=== PATIENT | male | born 1945 | race Caucasian/White ===

== ENCOUNTER → 2017-09-20 | Outpatient (CLI) | payer MEDICARE | END | disposition home or self-care (01) | LOC: OIH 13:21 | PROVIDERS: ATTEND Internal Medicine | DX: R05 Cough (principal); Z95.0 Presence of cardiac pacemaker | CPT/HCPCS: 71046 ==

== ENCOUNTER → 2017-10-17 | Outpatient (CLI) | payer MEDICARE | END | disposition home or self-care (01) | LOC: RAH 12:49 | PROVIDERS: ATTEND Internal Medicine | DX: J44.9 Chronic obstructive pulmonary disease, unspecified (principal); R04.2 Hemoptysis | CPT/HCPCS: 71250 ==

== ENCOUNTER 2018-06-07 14:56 | Emergency (ER) | payer MEDICARE ==
[2018-06-07] MEDS ORDERED: LIDOCAINE HCL MPF 1% 5ML VIAL ONE (15:28)
== END 2018-06-07 16:34 | disposition home or self-care (01) ==
LOC: EDH 14:56
DX: S61.210A Laceration without foreign body of right index finger without damage to nail, initial encounter (principal); I25.10 Atherosclerotic heart disease of native coronary artery without angina pectoris; E11.9 Type 2 diabetes mellitus without complications; Z95.0 Presence of cardiac pacemaker; Z90.49 Acquired absence of other specified parts of digestive tract; Z98.890 Other specified postprocedural states; Z88.0 Allergy status to penicillin; W26.8XXA Contact with other sharp object(s), not elsewhere classified, initial encounter; Y93.89 Activity, other specified; Y92.89 Other specified places as the place of occurrence of the external cause; Y99.8 Other external cause status
CPT/HCPCS: 12042; 73140; 99284; J3490

== ENCOUNTER 2020-11-04 15:11 | Emergency (ER) | payer MEDICARE ==
[2020-11-04 16:00] LABS: ABG BASE EXCESS 4.4 mmol/L (-2.0-3.0); ABG HCO3 28.4 mmol/L (21.0-28.0); ABG OXYGEN SATURATION 95.5 % (95.0-99.0); ABG PCO2 40 mmHg (35-48)
[2020-11-04 16:00] LABS: BASOPHILS % (AUTO) 0.3 % (0.0-5.0); EOSINOPHILS % (AUTO) 2.2 % (0.0-8.0); HEMATOCRIT 52.6 % (42-54); LYMPHOCYTES % (AUTO) 5.1 % (21.0-51.0); MEAN CORPUSCULAR HEMOGLOBIN 30.9 pg (27.0-33.0); MEAN CORPUSCULAR HGB CONC 33.1 g/dL (32.0-36.0); MEAN CORPUSCULAR VOLUME 93.3 fL (79-99); MONOCYTES % (AUTO) 5.5 % (3.0-13.0); NEUTROPHILS % (AUTO) 86.6 % (40.0-77.0); PLATELET COUNT (AUTO) 219 K/uL (130-400); RED BLOOD CELL COUNT(AUTO) 5.64 MIL/uL (4.50-6.20); RED CELL DISTRIBUTION WIDTH 15.3 % (11.0-15.5); WHITE BLOOD COUNT (AUTO) 7.8 K/uL (4.8-10.8)
[2020-11-04 16:05] LABS: APPEARANCE,URINE Clear (CLEAR); BILIRUBIN,URINE Negative (NEGATIVE); COLOR,URINE Yellow (YELLOW); GLUCOSE, URINE (UA) Negative (NEGATIVE); KETONES,URINE Negative (NEGATIVE); LEUKOCYTE ESTERASE ,URINE Negative (NEGATIVE); NITRATE,URINE Negative (NEGATIVE); OCCULT BLOOD,URINE Negative (NEGATIVE); PH,URINE 5.5 (5.0-8.0); PROTEIN,URINE Negative (NEGATIVE)
[2020-11-04 16:14] LABS: INR 2.9 (0.85-1.15); PROTHROMBIN TIME 28.7 SEC (9.6-11.6)
[2020-11-04 16:15] LABS: PARTIAL THROMBOPLASTIN TIME 49.3 SEC (26.3-35.5)
[2020-11-04 16:24] LABS: CREATININE 1.3 mg/dL (0.5-1.5); POTASSIUM 3.7 mmol/L (3.5-5.1)
[2020-11-04 16:28] LABS: B-TYPE NATRIURETIC PEPTIDE 57 pg/mL (0-100)
[2020-11-04 16:29] LABS: ALBUMIN 3.7 g/dL (3.5-5.0); BILIRUBIN,TOTAL 0.9 mg/dL (0.2-1.0); TOTAL PROTEIN, SERUM 7.4 g/dL (6.0-8.3)
[2021-02-17] MEDS ORDERED: TERB250T89 PO (02:41)
[2021-02-17] MEDS ORDERED: LISI2.5T13 PO (02:41)
[2021-06-23] MEDS ORDERED: SPIR25TA PO (17:45)
[2021-06-23] MEDS ORDERED: FURO40TA5 PO (17:45)
[2021-06-23] MEDS ORDERED: GABA800T9 PO (17:45)
[2021-06-23] MEDS ORDERED: SIMV-46 PO (17:45)
== END 2020-11-04 17:12 | disposition home or self-care (01) ==
LOC: EDH 15:11
DX: B34.9 Viral infection, unspecified (principal); Z20.822 Contact with and (suspected) exposure to COVID-19; E11.9 Type 2 diabetes mellitus without complications; I25.10 Atherosclerotic heart disease of native coronary artery without angina pectoris; Z87.891 Personal history of nicotine dependence; Z88.0 Allergy status to penicillin; Z91.048 Other nonmedicinal substance allergy status
CPT/HCPCS: 36415; 36600; 71045; 80053; 81003; 82550; 82803; 83605; 83880; 84145; 84484; 85025; 85610; 85730; 87040 ×2; 87426; 87804 ×2; 87880; 99284; U0003

== ENCOUNTER → 2021-02-02 | Outpatient (CLI) | payer MEDICARE | END | disposition home or self-care (01) | LOC: SHCH 14:40 | PROVIDERS: ATTEND Internal Medicine Cardiovascular Disease | DX: R60.9 Edema, unspecified (principal) | CPT/HCPCS: 93970 ==

== ENCOUNTER 2021-02-15 23:26 | Observation (INO) | payer MEDICARE ==
[~2021-02-15] VITALS: Ht 175.3 cm; Wt 122.5 kg
[2021-02-15 23:30] VITALS: BP 124/73
[2021-02-15 23:45] VITALS: BP 105/59
[2021-02-16] VITALS (13 sets, daily range): BP systolic 102–116; BP diastolic 52–75
[2021-02-16] MEDS ORDERED: ACETAMINOPHEN 500 MG TABLET PO ONE (00:45)
[2021-02-16 00:47] LABS: BASOPHILS % (AUTO) 0.3 % (0.0-5.0); HEMATOCRIT 47.6 % (42-54); LYMPHOCYTES % (AUTO) 16.9 % (21.0-51.0); MEAN CORPUSCULAR HEMOGLOBIN 31.9 pg (27.0-33.0); MEAN CORPUSCULAR HGB CONC 33.2 g/dL (32.0-36.0); MONOCYTES % (AUTO) 9.4 % (3.0-13.0); NEUTROPHILS % (AUTO) 70.2 % (40.0-77.0); PLATELET COUNT (AUTO) 185 K/uL (130-400); RED BLOOD CELL COUNT(AUTO) 4.96 MIL/uL (4.50-6.20); RED CELL DISTRIBUTION WIDTH 14.8 % (11.0-15.5); WHITE BLOOD COUNT (AUTO) 9.3 K/uL (4.8-10.8)
[2021-02-16 00:50] LABS: POTASSIUM 3.4 mmol/L (3.5-5.1)
[2021-02-16 00:51] LABS: BILIRUBIN,TOTAL 0.5 mg/dL (0.2-1.0); CREATININE 1.3 mg/dL (0.5-1.5)
[2021-02-16 00:52] LABS: ALBUMIN 3.6 g/dL (3.5-5.0); TOTAL PROTEIN, SERUM 6.8 g/dL (6.0-8.3)
[2021-02-16 02:08] LABS: INR 2.61 (0.85-1.15); PROTHROMBIN TIME 26.1 SEC (9.6-11.6)
[2021-02-16] MEDS ORDERED: SODIUM CHLORIDE 0.9% 100 ML IV ONE (02:57)
[2021-02-16] MEDS: PHYTONADIONE 10 MG/1 ML AMP IV SCH ×2 (03:11→03:25)
[2021-02-16] MEDS ORDERED: IOHEXOL-350 50ML VIAL IV ONE (13:09)
[2021-02-17] MEDS ORDERED: ACETAMINOPHEN 500 MG TABLET ONE (00:07)
[2021-02-17] MEDS ORDERED: ACETAMINOPHEN 500 MG TABLET PO SCH (00:15)
[2021-02-17 00:29] VITALS: BP 111/69
[2021-02-17 00:40] VITALS: BP 123/78
[2021-02-17] MEDS ORDERED: SIMV-46 PO (02:41)
[2021-02-17] MEDS ORDERED: TAMS-1 PO (02:41)
[2021-02-17] MEDS ORDERED: ALLO300T2 PO (02:41)
[2021-02-17] MEDS ORDERED: WARF10TA45 PO (02:41)
[2021-02-17] MEDS ORDERED: FURO40TA5 PO (02:41)
[2021-02-17] MEDS ORDERED: ASPI-1197 PO (02:41)
[2021-02-17] MEDS ORDERED: WARF7.5T49 PO (02:41)
[2021-02-17] MEDS ORDERED: POTA20PA32 PO (02:41)
[2021-02-17] MEDS ORDERED: LISI2.5T2 PO (02:41)
[2021-02-17] MEDS ORDERED: TERB250T51 PO (02:41)
[2021-02-17] MEDS ORDERED: METO2.5T2 PO (02:41)
[2021-02-17] MEDS ORDERED: CARV6.25 PO (02:41)
[2021-02-17] MEDS ORDERED: CYAN-52 PO (02:41)
[2021-02-17] MEDS ORDERED: METF-444 PO (02:41)
[2021-02-17] MEDS: PHYTONADIONE 10 MG/1 ML AMP IV SCH (02:45)
[2021-02-17 04:33] VITALS: BP 103/50
[2021-02-17 08:11] VITALS: BP 112/73
[2021-02-17 11:00] VITALS: BP 121/75
[2021-02-17 16:00] VITALS: BP 122/81
== END 2021-02-17 16:40 | disposition home or self-care (01) ==
LOC: EDH 23:26 → EDHIP 02-16 02:50 → 4AH 02-17 00:39
PROVIDERS: ADMIT Internal Medicine; ATTEND Internal Medicine
DX: S06.339A Contusion and laceration of cerebrum, unspecified, with loss of consciousness of unspecified duration, initial encounter (principal); J44.9 Chronic obstructive pulmonary disease, unspecified; I25.10 Atherosclerotic heart disease of native coronary artery without angina pectoris; E11.9 Type 2 diabetes mellitus without complications; E66.9 Obesity, unspecified; I11.0 Hypertensive heart disease with heart failure; I50.9 Heart failure, unspecified; I48.91 Unspecified atrial fibrillation; Z95.0 Presence of cardiac pacemaker; Z79.01 Long term (current) use of anticoagulants; Z79.899 Other long term (current) drug therapy; Z88.0 Allergy status to penicillin; W11.XXXA Fall on and from ladder, initial encounter; Y93.89 Activity, other specified; Y92.89 Other specified places as the place of occurrence of the external cause
CPT/HCPCS: 36415; 70470; 72125; 80053; 85025; 85610; 85730; 96374; 99285; G0378 ×37; J3430 ×2; Q9967; 70450

== ENCOUNTER 2021-04-10 08:18 | Emergency (ER) | payer MEDICARE ==
[2021-04-10] VITALS (7 sets, daily range): BP systolic 105–130; BP diastolic 58–82
[~2021-04-10] VITALS: Ht 175.3 cm; Wt 120.2 kg
[~2021-04-10 08:18] MED LIST: ALLO300T2 PO; ASPI-1197 PO; CARV6.25 PO; CYAN-52 PO; FURO40TA5 PO; LISI2.5T2 PO; METF-444 PO; METO2.5T2 PO; POTA20PA32 PO; SIMV-46 PO; TAMS-1 PO; TERB250T51 PO; WARF10TA45 PO; WARF7.5T49 PO
[2021-04-10 09:03] LABS: BASOPHILS % (AUTO) 0.5 % (0.0-5.0); EOSINOPHILS % (AUTO) 1.9 % (0.0-8.0); HEMATOCRIT 52.2 % (42-54); LYMPHOCYTES % (AUTO) 14.6 % (21.0-51.0); MEAN CORPUSCULAR HEMOGLOBIN 31.4 pg (27.0-33.0); MEAN CORPUSCULAR HGB CONC 32.8 g/dL (32.0-36.0); MONOCYTES % (AUTO) 8.3 % (3.0-13.0); NEUTROPHILS % (AUTO) 74.4 % (40.0-77.0); PLATELET COUNT (AUTO) 174 K/uL (130-400); RED BLOOD CELL COUNT(AUTO) 5.44 MIL/uL (4.50-6.20); RED CELL DISTRIBUTION WIDTH 15.6 % (11.0-15.5); WHITE BLOOD COUNT (AUTO) 7.8 K/uL (4.8-10.8)
[2021-04-10 09:11] LABS: CREATININE 1.2 mg/dL (0.5-1.5)
[2021-04-10 09:15] LABS: INR 2.33 (0.85-1.15); PROTHROMBIN TIME 23.5 SEC (9.6-11.6)
[2021-04-10 09:16] LABS: ALBUMIN 3.8 g/dL (3.5-5.0); BILIRUBIN,TOTAL 0.7 mg/dL (0.2-1.0); TOTAL PROTEIN, SERUM 7.2 g/dL (6.0-8.3)
[2021-04-10 09:17] LABS: PARTIAL THROMBOPLASTIN TIME 46.2 SEC (26.3-35.5)
[2021-04-10] MEDS ORDERED: PHYTONADIONE 10 MG in 0.9%NACL 50ML 50 ML IVPB SCH (09:30)
[2021-04-10] MEDS ORDERED: PHYTONADIONE 10 MG/1 ML AMP ONE (09:42)
[2021-04-10] MEDS ORDERED: 0.9%NACL 50ML 50 ML IV ONE (09:43)
[2021-04-10 12:16] LABS: APPEARANCE,URINE Clear (CLEAR); BILIRUBIN,URINE Negative (NEGATIVE); COLOR,URINE Yellow (YELLOW); GLUCOSE, URINE (UA) Negative (NEGATIVE); KETONES,URINE Negative (NEGATIVE); LEUKOCYTE ESTERASE ,URINE Trace (NEGATIVE); NITRATE,URINE Negative (NEGATIVE); OCCULT BLOOD,URINE Negative (NEGATIVE); PH,URINE 7.5 (5.0-8.0); PROTEIN,URINE Negative (NEGATIVE)
[2021-04-10 12:26] LABS: BACTERIA,URINE Rare /HPF (None Seen); RBC,URINE None Seen /HPF (0-1); SQUAMOUS EPITHELIAL CELL,UR Rare /HPF (0-2); WBC,URINE 0-1 /HPF (0-1)
[2021-04-10] MEDS ORDERED: ONDANSETRON 4MG INJ IVP ONE (13:30)
[2021-04-10] MEDS ORDERED: MORPHINE 4 MG SYG IV ONE (13:30)
[2021-04-10] MEDS ORDERED: MORPHINE 4 MG SYG ONE (16:28)
== END 2021-04-10 17:20 | disposition home or self-care (01) ==
LOC: EDH 08:18
DX: S06.5X9A Traumatic subdural hemorrhage with loss of consciousness of unspecified duration, initial encounter (principal); R51.9 Headache, unspecified; I48.91 Unspecified atrial fibrillation; I10 Essential (primary) hypertension; E11.9 Type 2 diabetes mellitus without complications; Z88.0 Allergy status to penicillin; Z79.84 Long term (current) use of oral hypoglycemic drugs; Z79.01 Long term (current) use of anticoagulants; Z79.899 Other long term (current) drug therapy; Z79.82 Long term (current) use of aspirin; Z98.890 Other specified postprocedural states; X58.XXXA Exposure to other specified factors, initial encounter; Z20.822 Contact with and (suspected) exposure to COVID-19; Y93.89 Activity, other specified; Y92.89 Other specified places as the place of occurrence of the external cause; Y99.8 Other external cause status
CPT/HCPCS: 36415; 70450; 80053; 81001; 82550; 85025; 85610; 85730; 87635; 96365; 96375; 96376; 99285; C9803; J2270 ×2; J2405; J3430 ×2

== ENCOUNTER 2021-05-15 09:47 | Emergency (ER) | payer MEDICARE ==
[~2021-05-15] VITALS: Ht 175.3 cm; Wt 117.5 kg
[~2021-05-15 09:47] MED LIST changes: +LISI2.5T13 PO; -LISI2.5T2 PO
[2021-05-15 09:48] VITALS: BP 112/70
[2021-05-15 10:37] LABS: BASOPHILS % (AUTO) 0.3 % (0.0-5.0); EOSINOPHILS % (AUTO) 0.9 % (0.0-8.0); HEMATOCRIT 47.4 % (42-54); LYMPHOCYTES % (AUTO) 21.4 % (21.0-51.0); MEAN CORPUSCULAR HGB CONC 32.9 g/dL (32.0-36.0); MEAN CORPUSCULAR VOLUME 94.2 fL (79-99); MONOCYTES % (AUTO) 14.2 % (3.0-13.0); NEUTROPHILS % (AUTO) 62.9 % (40.0-77.0); PLATELET COUNT (AUTO) 148 K/uL (130-400); RED BLOOD CELL COUNT(AUTO) 5.03 MIL/uL (4.50-6.20); WHITE BLOOD COUNT (AUTO) 3.3 K/uL (4.8-10.8)
[2021-05-15 11:01] LABS: CREATININE 1.4 mg/dL (0.5-1.5); POTASSIUM 3.9 mmol/L (3.5-5.1)
[2021-05-15 11:05] LABS: ALBUMIN 3.6 g/dL (3.5-5.0); BILIRUBIN,DIRECT 0.2 mg/dL (0.0-0.3); BILIRUBIN,TOTAL 0.8 mg/dL (0.2-1.0); CRP QUANTITATIVE 46.1 mg/L (0.00-9.0); TOTAL PROTEIN, SERUM 6.9 g/dL (6.0-8.3)
[2021-05-15] MEDS ORDERED: IVER3TAB PO (11:53)
[2021-05-15 11:54] LABS: ERYTHROCYTE SEDIMENTATION RATE 4 MM/HR (0-20)
== END 2021-05-15 14:36 | disposition home or self-care (01) ==
LOC: EDH 09:47
DX: U07.1 COVID-19 (principal); J98.8 Other specified respiratory disorders; J44.9 Chronic obstructive pulmonary disease, unspecified; I48.20 Chronic atrial fibrillation, unspecified; G47.30 Sleep apnea, unspecified; E11.9 Type 2 diabetes mellitus without complications; Z79.01 Long term (current) use of anticoagulants; Z79.82 Long term (current) use of aspirin; Z79.84 Long term (current) use of oral hypoglycemic drugs; Z79.899 Other long term (current) drug therapy; Z88.0 Allergy status to penicillin; Z95.0 Presence of cardiac pacemaker
CPT/HCPCS: 36415; 71045; 80053; 82550; 82728; 83615; 84484; 85025; 85378; 85651; 86140; 87040 ×2; 87635; 87804 ×2; 93005; 99285; C9803; 80076

== ENCOUNTER 2021-06-24 07:41 | Day surgery (SDC) | payer MEDICARE ==
[2021-06-22 09:05] LABS: BASOPHILS % (AUTO) 0.5 % (0.0-5.0); EOSINOPHILS % (AUTO) 2.2 % (0.0-8.0); HEMATOCRIT 44.3 % (42-54); MEAN CORPUSCULAR HGB CONC 32.1 g/dL (32.0-36.0); MEAN CORPUSCULAR VOLUME 96.7 fL (79-99); MONOCYTES % (AUTO) 10.1 % (3.0-13.0); NEUTROPHILS % (AUTO) 72.7 % (40.0-77.0); PLATELET COUNT (AUTO) 157 K/uL (130-400); RED BLOOD CELL COUNT(AUTO) 4.58 MIL/uL (4.50-6.20); RED CELL DISTRIBUTION WIDTH 17.6 % (11.0-15.5); WHITE BLOOD COUNT (AUTO) 7.4 K/uL (4.8-10.8)
[2021-06-22 09:06] LABS: APPEARANCE,URINE Clear (CLEAR); BILIRUBIN,URINE Negative (NEGATIVE); COLOR,URINE Yellow (YELLOW); GLUCOSE, URINE (UA) Negative (NEGATIVE); KETONES,URINE Negative (NEGATIVE); LEUKOCYTE ESTERASE ,URINE Negative (NEGATIVE); NITRATE,URINE Negative (NEGATIVE); OCCULT BLOOD,URINE Negative (NEGATIVE); PROTEIN,URINE Negative (NEGATIVE)
[2021-06-22 09:13] LABS: CREATININE 1.1 mg/dL (0.5-1.5); POTASSIUM 4.3 mmol/L (3.5-5.1)
[2021-06-22 09:16] LABS: INR 1.11 (0.85-1.15)
[2021-06-23 15:40] VITALS: BP 112/71
[2021-06-24] VITALS (12 sets, daily range): BP systolic 107–124; BP diastolic 55–77
[~2021-06-24] VITALS: Ht 175.3 cm; Wt 125.2 kg
[~2021-06-24 07:41] MED LIST changes: -ASPI-1197 PO; +GABA800T9 PO; -METO2.5T2 PO; +SPIR25TA PO; -TERB250T51 PO; -WARF10TA45 PO; -WARF7.5T49 PO
[2021-06-24] MEDS ORDERED: 0.9%NACL 1000ML 1,000 ML IV SCH (08:00)
[2021-06-24] MEDS ORDERED: CEFAZOLIN SODIUM 1 GM VIAL ONE (10:37)
[2021-06-24] MEDS ORDERED: MEPERIDINE-PF 25 MG/ML SYG ONE ×3 (10:37→12:04)
[2021-06-24] MEDS ORDERED: BUPIVACAINE/PF 0.25% 30ML VIAL IJ ONE (10:37)
[2021-06-24] MEDS ORDERED: MIDAZOLAM HCL 1 MG/ML 2ML VIAL ONE ×3 (10:38→12:04)
[2021-06-24] MEDS ORDERED: LIDOCAINE HCL 1% MDV 50ML VIAL ONE (10:38)
[2021-06-24] MEDS ORDERED: VANCOMYCIN 1G/250ML KIT 500 ML IV ONE (11:19)
[2021-06-24] MEDS ORDERED: THROMBIN-JMI 5000 UNIT/VIAL TP ONE (12:11)
[2021-06-24] MEDS ORDERED: ONDANSETRON 4MG INJ IV PRN (13:30)
[2021-06-24] MEDS ORDERED: ACETAMINOPHEN WITH CODEINE 1 TAB TAB PO PRN ×2 (13:30)
[2021-06-24] MEDS ORDERED: VANCOMYCIN 1G/250ML KIT 250 ML IV ONE (15:28)
[2021-06-24] MEDS: 0.9% NACL 250ML 250 ML IV PRN ×2 (17:18→17:22)
[2021-06-24] MEDS ORDERED: VANCOMYCIN 1G VIAL IVPB PRN (17:30)
== END 2021-06-24 19:40 | disposition home or self-care (01) ==
LOC: DAH 07:41
PROVIDERS: ATTEND Internal Medicine Cardiovascular Disease
DX: I42.0 Dilated cardiomyopathy (principal); J44.9 Chronic obstructive pulmonary disease, unspecified; I11.0 Hypertensive heart disease with heart failure; I50.9 Heart failure, unspecified; I25.10 Atherosclerotic heart disease of native coronary artery without angina pectoris; I48.91 Unspecified atrial fibrillation; E78.5 Hyperlipidemia, unspecified; Z88.0 Allergy status to penicillin; Z79.01 Long term (current) use of anticoagulants; Z79.84 Long term (current) use of oral hypoglycemic drugs; Z79.899 Other long term (current) drug therapy; Z96.653 Presence of artificial knee joint, bilateral; Z98.84 Bariatric surgery status
CPT/HCPCS: 17999; 36415; 71045; 80048; 81003; 82948 ×2; 85025; 85610; 85730; 93005; A4215; A4216; A4221; A4222; A4223 ×4; A4606; A4615; A4657; A4663; J2175 ×3; J2250 ×3; J3370 ×2; J3490 ×3; J7030; 33999; 96365; 96366; 99156; 99157; J0690

== ENCOUNTER → 2022-02-14 | Outpatient (CLI) | payer MEDICARE | END | disposition home or self-care (01) | LOC: RAH 14:06 | PROVIDERS: ATTEND Orthopaedic Surgery | DX: M19.012 Primary osteoarthritis, left shoulder (principal); M75.102 Unspecified rotator cuff tear or rupture of left shoulder, not specified as traumatic; M89.012 Algoneurodystrophy, left shoulder | CPT/HCPCS: 73200 ==

== ENCOUNTER → 2022-03-28 | Outpatient (CLI) | payer MEDICARE ==
[~2022-03-28] MED LIST changes: +APIX5TAB PO; +METO100T14 PO; +METO2.5T2 PO; +PANT40TA PO; +POTA-79 PO
[2022-03-28 12:38] LABS: ALBUMIN 3.6 g/dL (3.5-5.0); BILIRUBIN,TOTAL 0.6 mg/dL (0.2-1.0); POTASSIUM 4.9 mmol/L (3.5-5.1); TOTAL PROTEIN, SERUM 7.1 g/dL (6.0-8.3)
== END | disposition home or self-care (01) ==
LOC: LAB 08:21
PROVIDERS: ATTEND Physician Assistant
DX: I10 Essential (primary) hypertension (principal); I48.0 Paroxysmal atrial fibrillation
CPT/HCPCS: 36415; 80053; 83880